=== PATIENT | female | born 1990 | race African-American/Black ===

== ENCOUNTER 2018-03-19 15:53 | Emergency (ER) | payer MEDICAID, OTHER ==
--- NOTE | 2018-03-19 17:04 | ULT ---
ULTRASOUND OBSTETRICAL COMPLETE: 03/19/18 HISTORY: 28-year-old female with abdominal/pelvic pain. FINDINGS: number: Mckeon. lie: Variable. There is a round 4 x 3.5 cm mass with intermediate echogenicity at the anterior wall of the uterus, i ndenting the gestational sac. It has echogenicity similar to that of myometrium. Maternal cervix: 3.5 cm in length and closed. Placenta: Posterior. No placenta previa. Amniotic fluid volume: Subjectively within normal limits. heart rate: 157 bpm It is too early to visualize anatomy in detail. biometry: Head circumference (HC): 6.0 cm 12w 2d Biparietal diameter (BPD): 1.9 cm 12w 6d Abdominal circumference (AC): 5.3 cm 12w 2d Femur length (FL): 0.6 cm 12w 0d Average ultrasound age (AUA): 12w 2d Estimated date of delivery (CAROL ANN): 09/29/2018 Last menstrual period (LMP): 12/21/2017 Gestational age by LMP: 12w 4d IMPRESSION: 1. Live early second trimester intrauterine gestation. 2. Estimated gestational age of 12 weeks, 2 days. 3. Variable lie. 4. Anterior myometrial mass, which could either be a Buckeye-Joshi contraction or a leiomyoma (fibroi d). Followup Recommended. DERECK Limon POS: [facility]
== END 2018-03-19 17:49 | disposition home or self-care (01) ==
LOC: ERS 15:53
DX: O34.11 Maternal care for benign tumor of corpus uteri, first trimester (principal); O99.011 Anemia complicating pregnancy, first trimester; O99.351 Diseases of the nervous system complicating pregnancy, first trimester; G43.909 Migraine, unspecified, not intractable, without status migrainosus; Z3A.12 12 weeks gestation of pregnancy
CPT/HCPCS: 76805

== ENCOUNTER 2018-05-17 09:00 | Outpatient (CLI) | payer OTHER ==
--- NOTE | 2018-05-17 11:14 | ULT ---
OB ULTRASOUND: Date: 05/17/18 COMPARISON: 03/19/18. HISTORY: female. Evaluate size, dates, and anatomy. TECHNIQUE: Multiplanar Potts scale and color Doppler images were obtained in a transabdominal ultrasound. FINDINGS: There is a single, live intrauterine with heart rate of 144 beats/minute. A survey wa s performed which is unremarkable. The nose was not well seen. The rest of the face was well visualiz ed. The head, intracranial structures, heart, stomach, kidneys, umbilical cord, umbilical cord insert ion, bladder, spine, and extremities are unremarkable. Average age of the fetus based off today's exa mination is 21 weeks and 2 days. The following measurements were taken and dates based off these measurements are as follows: BPD: 5.07 cm, 21 weeks/3 days HC: 19.23 cm, 21 weeks/4 days AC: 15.87 cm, 21 weeks/0 days FL: 3.48 cm, 21 weeks/0 days The placenta is posterior in location without focal abnormality. The fetus is transverse and variable in presentation. JONATHAN is 14.67 cm, which is normal. The cervix is normal in length without evidence o f placenta previa. IMPRESSION: Single, live intrauterine , with estimated age of 21 weeks/2 days. POS: [facility]
== END 2018-05-17 09:01 | disposition home or self-care (01) ==
LOC: BICULT 09:00
PROVIDERS: ATTEND Family Medicine
DX: O09.92 Supervision of high risk pregnancy, unspecified, second trimester (principal); Z3A.21 21 weeks gestation of pregnancy
CPT/HCPCS: 76805

== ENCOUNTER 2018-06-29 20:15 | Day surgery (SDC) | payer OTHER ==
[2018-06-29 21:01] VITALS: BP 118/68; TEMP 98.6; BMI 35.5
--- NOTE | 2018-06-30 01:13 | PRG ---
DATE OF SERVICE: 06/29/2018 PRIMARY OB: Bob Munoz MD. CHIEF COMPLAINT: Abdominal pain. HISTORY OF PRESENT ILLNESS: The patient is a 28-year-old G3, P3 female with an intrauterine at 27 weeks and 3 days, who is presenting to Labor and Delivery with complaints of 1-day history of sharp upper abdominal pains. She reports lasts for 5-7 seconds at a time and are sharp in nature. The patient denies having a hard abdominal pains making her abdomen hard. She reports that she does have some back pain and hip pain that she has been having for several weeks now and has been unable to work because of that. The patient reports that she has a bowel movement about every 2 to 3 days. At times, having constipation and pebble-like stools and other times more normal stools. The patient denies nausea. She denies vomiting. She denies diarrhea. She denies any fever, sick contacts, headache, chest pain, shortness of breath. She denies any new rashes, any urinary urgency. She denies pain with this upper abdominal pain with eating or hunger. She denies any right upper quadrant tenderness. PAST MEDICAL HISTORY: Anemia and migraines. PAST SURGICAL HISTORY: Two prior C-sections. SOCIAL HISTORY: Denies drug, alcohol, or tobacco use. ALLERGIES: NO KNOWN DRUG ALLERGIES. MEDICATIONS: None. OB LABS: Unavailable. REVIEW OF SYSTEMS: Per HPI. PHYSICAL EXAMINATION: VITAL SIGNS: Blood pressure is 119/63, heart rate of 82, respiratory rate of 18, saturating 98% on room air, temperature 98.6. GENERAL: She appears to be in no acute distress. She is alert, oriented, cooperative, and pleasant to interact with. HEAD: Normocephalic, atraumatic. LUNGS: Clear to auscultation bilaterally. HEART: Has regular rate and rhythm. ABDOMEN: Soft, gravid, nontender. She has no right upper quadrant tenderness. Negative Infante sign. She has no fundal tenderness. No lower abdominal tenderness. No CVA tenderness. EXTREMITIES: Nontender. : Exam has been deferred. heart tracing shows a baby with a baseline in the 150s with moderate long-term variability and 10 x 10 accelerations appropriate for a 27-week gestation. ASSESSMENT AND PLAN: The patient is a 28-year-old G3, P3 female with an intrauterine at 27 weeks and 3 days, presenting with musculoskeletal pains have been present for several weeks and this upper abdominal pain that does not by history sound like uterine contractions. She has no evidence on exam that these pains are associated with her gallbladder or her stomach. She may be having some pain associated with her bowels from gas as the patient does have a slower than normal colon emptying and may be experiencing colicky pains associated with this. The patient has been counseled to add fiber or other bulking agent to her diet to help her to have more regular bowel movements. The fetus is reassuring for gestational age. The patient is comfortable being discharged home and has been encouraged to keep her appointment with Dr. Munoz as scheduled. Job ID: [id number]
== END 2018-06-29 22:05 | disposition home or self-care (01) ==
LOC: ERS 20:15 → L&D/OP 20:25
PROVIDERS: ATTEND Family Medicine
DX: O99.89 Other specified diseases and conditions complicating pregnancy, childbirth and the puerperium (principal); R10.10 Upper abdominal pain, unspecified; O99.012 Anemia complicating pregnancy, second trimester; O99.352 Diseases of the nervous system complicating pregnancy, second trimester; G43.909 Migraine, unspecified, not intractable, without status migrainosus; O34.219 Maternal care for unspecified type scar from previous cesarean delivery; Z3A.27 27 weeks gestation of pregnancy
CPT/HCPCS: 99282

== ENCOUNTER 2018-08-30 23:11 | Emergency (ER) | payer OTHER ==
[2018-08-30 23:36] LABS: Bilirubin Negative (Negative); Blood, Urine Small (Negative); Clarity CLEAR (Clear); Glucose, Urine (Dipstick) 100 mg/dL (Negative); Leukocyte Negative (Negative); Nitrite Negative (Negative); Protein, Urine (Dipstick) 30 mg/dL (Neg-Trace); Specific Gravity, Urine 1.021 (1.002-1.036)
[2018-08-30 23:39] LABS: Bacteria/HPF None Seen HPF (None Seen); Crystals/HPF None Seen HPF (Negative); Hyaline Casts/LPF NONE SEEN LPF (0-3 Hyaline); RBC/HPF 0-3 HPF (0-3); Renal Epithelial None Seen HPF (0-3); Squamous Epithelial 0-3 HPF (0-3); Transitional Epithelial NONE SEEN HPF (0-3); WBC/HPF 0-3 HPF (0-3); Yeast-All Forms None Seen HPF (None Seen)
[2018-08-30 23:42] LABS: #Eosinphils 0.1 thou/uL (0.0-0.7); #Lymphocytes 1.9 thou/uL (1.20-3.40); #Monocytes 0.9 thou/uL (0.11-0.59); #Neutrophils 5.4 thou/uL (1.40-6.50); %Basophils 0.2 % (0.0-1.0); %Eosinophils 1.5 % (0.0-10.0); %Monocytes 10.5 % (0.0-10.0); %Neutrophils 64.9 % (42.0-75.0); Hemoglobin 11.3 g/dL (12.0-16.0); Mean Corpuscular HGB CONC 33.4 g/dL (32.0-36.0); Mean Corpuscular Hemoglobin 27.3 pg (27.0-31.0); Mean Corpuscular Volume 81.9 fL (78.0-98.0); Mean Platelet Volume 8.5 fL (7.4-10.4); Platelet Count 276 thou/uL (130-400); RBC Distribution Width 14.6 % (11.5-14.5); Red Blood Cell (RBC) Count 4.12 mill/uL (4.20-5.40); White Blood Cell (WBC) Count 8.3 thou/uL (4.8-10.8)
[2018-08-31 00:04] LABS: ALT (SGPT) 12 U/L (8-55); AST (SGOT) 12 U/L (5-34); Albumin 3.3 g/dL (3.5-5.0); Alkaline Phosphatase 116 U/L (40-150); Anion Gap 13 mmol/L (10-20); BUN (Urea Nitrogen) 7 mg/dL (7.0-18.7); Bilirubin, Total 0.3 mg/dL (0.2-1.2); Calc. Creatinine Clearance 0 mL/min (70-130); Calcium 9.1 mg/dL (7.8-10.44); Carbon Dioxide 16 mmol/L (22-29); Chloride 108 mmol/L (98-107); Estimated GFR-MDRD Greater than 90; Globulin 3.2 g/dL (2.4-3.5); Glucose 92 mg/dL (70-105); Lipase 26 U/L (8-78); Potassium 4.2 mmol/L (3.5-5.1); Protein, Total 6.5 g/dL (6.0-8.3); Sodium 133 mmol/L (136-145)
[2018-08-31 01:13] LABS: BHCG - Serum POSITIVE (NEGATIVE); Pregs Control Background? CLEAR/WHITE (CLR/WHITE); Pregs Control Bar Appear? YES (CONTROL BAR)
== END 2018-08-31 01:55 | disposition left against medical advice (07) ==
LOC: ERS 23:11
DX: Z53.21 Procedure and treatment not carried out due to patient leaving prior to being seen by health care provider (principal)
CPT/HCPCS: 36415; 80053; 81003; 81015; 83690; 84703; 85025

== ENCOUNTER 2018-09-27 05:27 | Inpatient (IN) | payer OTHER ==
[2018-09-27 05:58] VITALS: BMI 38.7
[2018-09-27] MEDS ORDERED: Promethazine HCl 25 MG/ML VIAL IM PRN ×3 (06:27→19:54)
[2018-09-27] MEDS ORDERED: CEFAZOLIN 2 GM in Premix Bag 1 BAG IVPB SCH (06:27)
[2018-09-27] MEDS ORDERED: Ondansetron PF 4 MG/2 ML Vial IVP PRN ×5 (06:27→19:56)
[2018-09-27] MEDS ORDERED: Lactated Ringer's 1,000 ML IV SCH (06:27)
[2018-09-27] MEDS ORDERED: hydrALAZINE 20 MG/ML VIAL SLOW IVP PRN ×3 (06:27→19:55)
[2018-09-27] MEDS ORDERED: Bicitra 30 ML UDCUP PO SCH (06:27)
[2018-09-27 06:50] LABS: Hemoglobin 11.4 g/dL (12.0-16.0); Mean Corpuscular HGB CONC 33.3 g/dL (32.0-36.0); Mean Corpuscular Hemoglobin 27.4 pg (27.0-31.0); Mean Corpuscular Volume 82.2 fL (78.0-98.0); Mean Platelet Volume 9.2 fL (7.4-10.4); Platelet Count 238 thou/uL (130-400); RBC Distribution Width 14.4 % (11.5-14.5); Red Blood Cell (RBC) Count 4.17 mill/uL (4.20-5.40); White Blood Cell (WBC) Count 7.4 thou/uL (4.8-10.8)
[2018-09-27] MEDS ORDERED: Fentanyl 100 MCG/2 ML VIAL ONE (07:11)
[2018-09-27] MEDS ORDERED: Oxytocin 10 UNITS/ML VIAL ONE ×2 (07:12→08:36)
[2018-09-27] MEDS ORDERED: Ondansetron PF 4 MG/2 ML Vial ONE ×2 (07:12→12:27)
[2018-09-27] MEDS ORDERED: Ketorolac Tromethamine 30 MG/ML VIAL ONE ×2 (07:12→12:27)
[2018-09-27] MEDS ORDERED: Phenylephrine HCL 10 MG/ML VIAL ONE (07:12)
[2018-09-27] MEDS ORDERED: ePHEDrine/0.9% NaCl/PF SYRINGE 50 mg/10 ml ONE (07:12)
[2018-09-27] MEDS ORDERED: MORPHINE 5 MG/10 ML PF VIAL ONE (07:13)
[2018-09-27 07:24] LABS: HBSAg Index 0.28 S/CO (0-0.99); Hep B Surf Ag Non-Reactive S/CO (NonReactive)
[2018-09-27 07:25] LABS: Syphilis Antibody Nonreactive (Nonreactive); Syphilis Antibody Index 0.05 S/CO (<1.00 Non-Reactive)
[2018-09-27] MEDS ORDERED: HYDROmorphone 2 MG/ML VIAL SLOW IVP PRN (08:48)
[2018-09-27] MEDS ORDERED: L&D-Morphine 4 MG/ML VIAL SLOW IVP PRN (08:48)
[2018-09-27] MEDS ORDERED: Promethazine HCl 25 MG SUPP PR PRN ×2 (08:48→19:54)
[2018-09-27] MEDS ORDERED: Naloxone HCl 0.4 mg/ml Vial IVP PRN ×2 (08:48)
[2018-09-27] MEDS ORDERED: diphenhydrAMINE 50 MG/ML VIAL IVP PRN ×2 (08:48→19:53)
[2018-09-27] MEDS ORDERED: Naloxone HCl 0.4 mg/ml Vial IV PRN ×2 (08:48→19:54)
--- NOTE | 2018-09-27 08:53 | CON ---
DATE OF CONSULTATION: 09/27/2018 TIME OF MY INVOLVEMENT/TIME OF PROCEDURE: 08:15 to 08:25. LOCATION: Labor and Delivery OR. PROCEDURE PERFORMED: Right Salpingectomy for bleeding control REQUESTING PHYSICIAN: Dr. Munoz with [facility]. COURSE OF EVENTS: In brief, I was called at approximately 08:10 to come to the OR in Labor and Delivery to assist with bleeding control. I arrived at 08:15 am as I was completing my check out from the previous on-call physician. When I arrived into the OR, I found the team still at the bedside surrounding the patient. The patient was stable and the hysterotomy had been closed status post placental delivery. I was called because in the patient's right adnexa, the right mesosalpinx had active bleeding at the large vessels due to previous adhesions that required dissection in order to complete the delivery procedure. Due to this lysis of adhesions, as this was a repeat , there was subsequent bleeding at the right mesosalpinx area. I examined the area with various clamps and found that there was no way to control the bleeding without performing a [id number]-[id number] salpingectomy. We discussed this as a team and as the only way to safely control the bleeding was the removal of the tube, we elected to do so. The ovary was left intact. We placed two Peon clamps across the injured mesosalpinx in a mid-to- distal salpingectomy fashion. The base was rendered hemostatic with free ties of 0 Vicryl x2 that were not needle-thrown. These three ties rendered the area hemostatic. After confirming that no further bleeding was noted, the uterus was replaced into the abdominal pelvic cavity as the uterus was exteriorized for this repair. After confirming hemostasis after the uterus was taken off tension, I scrubbed out at 08:25. I did go to the patient's head and discussed with her the findings and the requirement of the tubal removal. The patient was alert and responsive and was aware of the procedure being done. She had knowledge that the right tube, but not the ovary was sacrificed in order to control bleeding. The two will be sent to Pathology for final documentation and pathology review. My EBL for my portion was less than 5 mL. Total blood loss by the team, so far per Dr. Munoz, is an estimated blood loss of about 750 mL or so. The quantitative blood loss is still pending. I scrubbed out and the final disposition will be per Dr. Munoz's discretion. She was hemodynamically stable as I exited the room. Job ID: [id number] MTDD
[2018-09-27] MEDS ORDERED: Communication Order-Pharmacy FS SCH (09:00)
[2018-09-27] MEDS ORDERED: Meperidine HCl/PF 25 MG/ML VIAL ONE ×2 (10:11→10:30)
[2018-09-27] MEDS: Meperidine HCl/PF 25 MG/ML VIAL SLOW IVP PRN ×2 (10:12→10:32)
[2018-09-27] MEDS ORDERED: Morphine 4 MG/ML VIAL ONE (11:14)
[2018-09-27] MEDS ORDERED: Bisacodyl 10 MG SUPP PR PRN ×2 (11:33→19:54)
[2018-09-27] MEDS ORDERED: Simethicone Chewable 80 MG TAB PO PRN (11:33)
[2018-09-27] MEDS ORDERED: NS / Oxytocin 40 units/1000ml 1,000 ML IV SCH ×2 (11:33→20:00)
[2018-09-27] MEDS ORDERED: Lanolin Ointment 7 GM TUBE TOP PRN ×2 (11:33→19:56)
[2018-09-27] MEDS ORDERED: Adacel (T-DAP) 0.5 ML SYRINGE IM ONE (11:33)
[2018-09-27] MEDS: Ketorolac Tromethamine 30 MG/ML VIAL IVP SCH ×3 (13:24→21:31)
[2018-09-27] MEDS ORDERED: NS / Oxytocin 40 units/1000ml 1,000 ML ONE (15:26)
[2018-09-27] MEDS ORDERED: Ferrous Sulfate 325 MG TAB PO SCH (17:00)
[2018-09-27] MEDS: Simethicone Chewable 80 MG TAB PO PRN (20:03)
[2018-09-27] MEDS: Docusate Calcium (SURFAK) 240 MG CAP PO SCH (20:03)
[2018-09-27] MEDS ORDERED: Docusate Calcium (SURFAK) 240 MG CAP PO SCH (21:00)
[2018-09-27] MEDS ORDERED: HYDROcodone/Acetaminophen 5/325 mg Tablet PO PRN ×3 (21:00)
[2018-09-27] MEDS ORDERED: Meperidine HCl/PF 25 MG/ML VIAL IM PRN ×2 (21:00)
[2018-09-28] MEDS: HYDROcodone/Acetaminophen 5/325 mg Tablet PO PRN ×6 (00:37→23:17)
[2018-09-28] MEDS: Ketorolac Tromethamine 30 MG/ML VIAL IVP SCH (01:57)
[2018-09-28] MEDS: Ferrous Sulfate 325 MG TAB PO SCH ×2 (08:10→17:01)
[2018-09-28] MEDS: Prenatal Vitamin 1 TAB PO SCH (08:22)
[2018-09-28] MEDS: Ibuprofen 800 MG TAB PO SCH ×3 (08:22→23:16)
[2018-09-28] MEDS: Docusate Calcium (SURFAK) 240 MG CAP PO SCH ×2 (08:23→21:36)
[2018-09-28] MEDS: Simethicone Chewable 80 MG TAB PO PRN ×2 (08:23→14:35)
[2018-09-28] MEDS ORDERED: Prenatal Vitamin 1 TAB PO SCH (09:00)
[2018-09-28] MEDS ORDERED: Ibuprofen 800 MG TAB PO SCH (14:00)
[2018-09-29] MEDS: HYDROcodone/Acetaminophen 5/325 mg Tablet PO PRN ×3 (05:15→14:11)
[2018-09-29] MEDS: Simethicone Chewable 80 MG TAB PO PRN ×3 (05:32→14:11)
[2018-09-29 08:22] VITALS: TEMP 98.2
[2018-09-29] MEDS: Ibuprofen 800 MG TAB PO SCH ×3 (09:30→23:12)
[2018-09-29] MEDS: Prenatal Vitamin 1 TAB PO SCH (09:30)
[2018-09-29] MEDS: Docusate Calcium (SURFAK) 240 MG CAP PO SCH ×2 (09:30→23:11)
[2018-09-29] MEDS: Ferrous Sulfate 325 MG TAB PO SCH ×2 (09:30→15:56)
[2018-09-29] MEDS ORDERED: HYDROcodone/Acetaminophen 7.5/325 mg Tablet PO PRN (17:08)
[2018-09-29] MEDS: HYDROcodone/Acetaminophen 7.5/325 mg Tablet PO PRN ×2 (19:07→23:10)
[2018-09-30] MEDS: Ibuprofen 800 MG TAB PO SCH ×2 (06:51→13:43)
[2018-09-30] MEDS: HYDROcodone/Acetaminophen 7.5/325 mg Tablet PO PRN ×4 (06:56→18:20)
[2018-09-30 07:48] VITALS: BP 136/75
[2018-09-30] MEDS: Ferrous Sulfate 325 MG TAB PO SCH ×2 (08:41→18:20)
[2018-09-30] MEDS: Docusate Calcium (SURFAK) 240 MG CAP PO SCH (08:41)
[2018-09-30] MEDS: Prenatal Vitamin 1 TAB PO SCH (08:42)
[2018-09-30] MEDS: Simethicone Chewable 80 MG TAB PO PRN (08:42)
--- NOTE | 2018-10-03 09:49 | OP ---
DATE OF PROCEDURE: 09/27/2018 PREOPERATIVE DIAGNOSES: 1. Sxsxct-lejf-zyeo . 2. Prior section x2. POSTOPERATIVE DIAGNOSES: 1. Pulcvv-ibkw-ynlu . 2. Prior section x2. 3. Extensive intra-abdominal adhesions. PROCEDURES PERFORMED: 1. Repeat low cervical transverse section. 2. Partial right salpingectomy. MECHANIC INSULATOR: Dr. Smith. DESCRIPTION OF PROCEDURE: After informed consent was obtained form the patient, she was taken to the operating room, where spinal anesthesia was administered. She was prepped and draped in usual sterile fashion. A Pfannenstiel incision was created over her previous scar and carried down to the fascia. Skin bleeders were coagulated with Bovie. The fascia was nicked in the midline. The fascial incision was extended transversely with Ordonez scissors. The superior fascial segment was grasped with Kochers and elevated, and the underlying rectus muscles were taken down first bluntly, then with Ordonez scissors, and then with the cautery. This was repeated with the inferior fascial segment. In the course of taking down the superior fascial segment, the abdomen was entered, and extensive adhesions between the anterior abdominal wall and the uterine fundus were noted. These were taken down with the Bovie and Metzenbaum scissors. The bladder blade was inserted. The uterus was entered in a low transverse fashion with a clean #10 scalpel blade. The hysterotomy was extended superolaterally with blunt dissection. Clear amniotic fluid was encountered. The vertex was delivered onto the operative field. The remainder of the infant was delivered onto the operative field atraumatically. The oropharynx and nares were bulb suctioned. The cord was clamped x2 after 30 seconds, and a vigorous female was handed to the staff in attendance. Cord blood was obtained. The placenta was manually extracted. The uterus was exteriorized and freed of clots and debris. The uterine incision was repaired with a running locking suture of 0 Vicryl in a single full-thickness layer followed by series of interrupted [id number] sutures along the incision line for hemostasis. At this point, the uterus, tubes, and ovaries were inspected, and bleeding was noted from the right mesosalpinx, where adhesions had torn section of the mesosalpinx either during delivery or upon exteriorization of the uterus. Hemostats were placed for control of bleeding. At this point, Dr. Bower presented to the OR and performed a right salpingectomy. Please refer to his notes for details. A laceration of the uterine fundus from other adhesions was repaired with a running locking suture of 2-0 chromic. The abdomen was copiously irrigated with saline. Seprafilm was applied to the repaired uterine incision and the anterior uterine fundus. The uterus was returned to the abdomen. Hemostasis of the incision, the laceration in the fundus, and the right mesosalpinx was observed. The peritoneum was repaired with a running suture of 3-0 Vicryl. The fascia was repaired with a running suture of 0 PDS. Three interrupted sutures of 3-0 Vicryl were placed in the subdermal layer to reapproximate the skin, which was closed with skin gatito. Sponge and instrument counts were correct x4. She tolerated the procedure well and suffered no other acute complications. FINDINGS: Viable female infant. Apgars 8 and 9 at one and five minutes. 8 pounds 9 ounces. COMPLICATIONS: Intra-abdominal adhesions with laceration of the anterior uterine fundus and the right mesosalpinx with resultant partial right salpingectomy. NASIR: 735. Job ID: [id number]
== END 2018-09-30 18:50 | disposition home or self-care (01) | DRG 785 ==
LOC: L&D 05:27 → 3SW 11:47 → UNDODISIN 14:35
PROVIDERS: ADMIT Family Medicine; ATTEND Family Medicine
PROC: 10D00Z1 Extraction of Products of Conception, Low, Open Approach (ICD-10-PCS; principal; 2018-09-27)
PROC: 0UB50ZZ Excision of Right Fallopian Tube, Open Approach (ICD-10-PCS; 2018-09-27)
DX: O34.211 Maternal care for low transverse scar from previous cesarean delivery (principal); O67.8 Other intrapartum hemorrhage; Z3A.39 39 weeks gestation of pregnancy; Z37.0 Single live birth; O99.613 Diseases of the digestive system complicating pregnancy, third trimester; K66.0 Peritoneal adhesions (postprocedural) (postinfection); O71.81 Laceration of uterus, not elsewhere classified
CPT/HCPCS: 36415; 51702; 85027; 86780; 86850; 86900; 86901; 87340; 88302; J0690; J1200; J1885; J2175; J2270; J2274; J2370; J2405; J2590; J3010

== ENCOUNTER 2019-07-28 07:55 | Outpatient (CLI) | payer OTHER ==
--- NOTE | 2019-07-28 08:59 | ULT ---
PELVIC ULTRASOUND: DATE: 07/28/2019. HISTORY: Evaluate cystic lesion posterior to uterus. TECHNIQUE: Multiplanar, desai scale sonographic imaging of the pelvis is provided. Ovaries are assessed with col or flow and spectral analysis. FINDINGS: A single intrauterine gestation is noted. The uterus measures 13.3 x 6.8 cm. heart rate is 16 1 b.p.m. There is a simple cystic lesion measuring 4.1 x 4.4 x 3.8 cm in the region of the pelvic cul-de-sac a nterior to the cervix which appears to represent a cyst emanating from the left ovary. The left ovar y including this cystic lesion measures 5.8 x 4.4 x 4.9 cm. Right ovary measures 2.3 x 1.7 x 3.5 cm. The ovaries demonstrate normal blood flow. No free fluid noted in the pelvis. IMPRESSION: Intrauterine gestation as detailed above. Cystic lesion in the pelvic cul-de-sac likely represents a simple cyst emanating from the left ovary measuring up to 4.4 cm. POS: [facility]
== END 2019-07-28 07:56 | disposition home or self-care (01) ==
LOC: BICULT 07:55
PROVIDERS: ATTEND Family Medicine
DX: O99.89 Other specified diseases and conditions complicating pregnancy, childbirth and the puerperium (principal); R19.05 Periumbilic swelling, mass or lump; O34.80 Maternal care for other abnormalities of pelvic organs, unspecified trimester; N83.202 Unspecified ovarian cyst, left side; N94.89 Other specified conditions associated with female genital organs and menstrual cycle
CPT/HCPCS: 76856; 93976

== ENCOUNTER 2019-09-18 09:25 | Outpatient (CLI) | payer OTHER ==
--- NOTE | 2019-09-18 10:18 | ULT ---
EXAM: OB ultrasound COMPARISON: None HISTORY: female. Evaluate size, dates, and anatomy. TECHNIQUE: Multiplanar grayscale and color Doppler images were obtained in a transabdominal ult rasound. FINDINGS: There is a single live intrauterine with heart rate of 149 bpm. A survey wa s performed which is unremarkable. The spine was not well visualized. The head, intracranial structures, heart, stomach, kidneys, umbilical cord, umbilical cord insertion, face, and extremities were evaluated and were unremarkable. Estimated weight is 382 g. Average age of the fetus based off today's examination is 20 weeks 5 days. BPD 4.73 cm -- 20 weeks 3 days HC 17.85 cm -- 20 weeks 3 days AC 15.86 cm -- 21 weeks 0 days FL 3.46 cm -- 21 weeks 0 days The placenta is posterior in location without focal abnormality. JONATHAN is 14.97 cm which is normal. The cervix is normal in length. There is no evidence of placenta previa. IMPRESSION: Single live intrauterine with estimated age of 20 weeks 5 days.
== END 2019-09-18 09:26 | disposition home or self-care (01) ==
LOC: BICULT 09:25
PROVIDERS: ATTEND Family Medicine
DX: O09.92 Supervision of high risk pregnancy, unspecified, second trimester (principal); Z3A.20 20 weeks gestation of pregnancy
CPT/HCPCS: 76805

== ENCOUNTER 2020-02-01 15:25 | Outpatient (CLI) | payer OTHER ==
[2020-02-02 11:59] LABS: SARS-CoV-2 MS2 Positive; SARS-CoV-2 N Gene Negative; SARS-CoV-2 S Gene Negative; SARS-CoV-2 by NAA Not Detected (NotDetected); SARS-CoV-2 orf1ab Negative
== END 2020-02-01 15:26 | disposition home or self-care (01) ==
LOC: LABBT 15:25
PROVIDERS: ATTEND Family Medicine
DX: Z20.828 Contact with and (suspected) exposure to other viral communicable diseases (principal)
CPT/HCPCS: 87635; U0003

== ENCOUNTER 2020-02-05 05:02 | Inpatient (IN) | payer OTHER ==
[2020-02-05] MEDS ORDERED: hydrALAZINE 20 MG/ML VIAL SLOW IVP PRN ×2 (05:22→11:47)
[2020-02-05] MEDS ORDERED: Promethazine HCl 25 MG/ML VIAL IM PRN ×3 (05:22→11:47)
[2020-02-05] MEDS ORDERED: Lactated Ringer's 1,000 ML IV SCH (05:22)
[2020-02-05] MEDS ORDERED: Ondansetron PF 4 MG/2 ML Vial IVP PRN ×3 (05:22→11:47)
[2020-02-05] MEDS ORDERED: Bicitra 30 ML UDCUP PO SCH (05:30)
[2020-02-05] MEDS ORDERED: CEFAZOLIN 2 GM in Premix Bag 1 BAG IVPB SCH (05:30)
[2020-02-05 05:33] VITALS: BMI 35.0
[2020-02-05 05:59] LABS: Mean Corpuscular HGB CONC 34.3 g/dL (32.0-36.0); Mean Corpuscular Hemoglobin 27.7 pg (27.0-31.0); Mean Corpuscular Volume 80.6 fL (78.0-98.0); Mean Platelet Volume 9.3 fL (7.4-10.4); Platelet Count 249 thou/uL (130-400); RBC Distribution Width 14.3 % (11.5-14.5); Red Blood Cell (RBC) Count 3.96 mill/uL (4.20-5.40); White Blood Cell (WBC) Count 8.6 thou/uL (4.8-10.8)
[2020-02-05 06:43] LABS: HBSAg Index 0.16 S/CO (0-0.99); Hep B Surf Ag Non-Reactive S/CO (NonReactive)
[2020-02-05 07:04] LABS: Syphilis Antibody Nonreactive (Nonreactive); Syphilis Antibody Index 0.07 S/CO (<1.00 Non-Reactive)
[2020-02-05] MEDS ORDERED: Misoprostol 200 MCG TAB ONE (08:02)
[2020-02-05] MEDS ORDERED: Methylergonovine 0.2 MG/ML VIAL ONE (08:02)
[2020-02-05] MEDS ORDERED: ePHEDrine 50 MG/ML VIAL ONE (08:11)
[2020-02-05] MEDS ORDERED: Oxytocin 10 UNITS/ML VIAL ONE ×2 (08:11→09:32)
[2020-02-05] MEDS ORDERED: Ketorolac Tromethamine 30 MG/ML VIAL ONE (08:12)
[2020-02-05] MEDS ORDERED: PHENYLEPHRINE-NS 100 MCG/ML 10 ML SYRINGE ONE (08:12)
[2020-02-05] MEDS ORDERED: Ondansetron PF 4 MG/2 ML Vial ONE (09:12)
--- NOTE | 2020-02-05 09:52 | PDOC.OPDEL ---
OB Operative/Delivery Note Delivery Dr/Surgeon: Dr. Munoz, Dr. Carballo Assist: Dr. Pelletier Pre-Delivery Diagnosis: scheduled section Procedure/Post Delivery Dx: repeat low transverse CS Weeks gestation: 40 Anesthesia: spinal - Additional Findings/Plan Placenta delivered: manual removal findings: low transverse hysterotomy without extension Estimated blood loss: 445 Compilations/Other Findings: Date of Procedure: 02/05/20 Attending Surgeon: Dr. Alexander Acevedo surgeon: Dr. Carballo Assist surgeon: Dr. Pelletier WHEEL ROLLER Procedure: repeat low transverse caesarean section X4 Preoperative Diagnosis: 1) Term intrauterine 2) previous LTCS X3 3) Hx of extensive adhesions during last delivery Postoperative Diagnosis: 1) Term delivered 2) same as above Anesthesia: spinal Indications: 29 year old -> [id number] @ 40.0wks presents for repeat scheduled LTCS. X3 previous cesareans. Procedure in Detail: After risks, benefits, and alternatives were explained to the patient, she gave informed consent. Pre-operative antibiotics included ancef 2 g. The patient was taken to the operating room and spinal anesthesia was placed. She was placed in the supine position with a left tilt and prepped and draped in usual sterile fashion. A Pfannenstiel incision was made with a scalpel and carried down to the level of the fascia which was sharply nicked. The fascial cut was extended bilaterally with curved mayos. The inferior and superior edges of the cut fascial edges were elevated with Oswaldo clamps and the underlying rectus muscles bluntly and sharply dissected free. The recti were divided using blunt and sharp dissection. The peritoneum was entered bluntly and retracted manually. Few lateral adhesions were attended to with the bovie. The uterus was palpated and found to be have an anterior adhesion, which was sharply dissected free. There was a lower uterine segment window present. A low transverse score was made with the scalpel and the uterus was entered in the midline with the scalpel. Amniotomy performed with allis. Clear fluid was seen. The hysterotomy was extended manually. The infant was noted to be vertex and was easily delivered by fundal pressure. Mouth and nares were bulb suctioned. Cord clamped after 30 seconds delayed and cut and grossly normal was handed to waiting nurse. Cord blood was obtained. Placenta was manually extracted, found to be intact with 3 vessel cord and discarded. The uterus was externalized and curetted with a dry lap, while damp lap was placed over the fundus. Ring forceps were applied to the hysterotomy edges for hemostasis and the endometrium was curetted with a dry lap. The hysterotomy was closed with a running locking 0- Monocryl in the usual fashion with tags on lateral edges. An imbricating layer with vicry1-0 was sutured in the usual fashion. Following this there was noticeable bleeding from where the uterine adhesion was let down. X2 figure of 8 stitches were placed with 1-0 vicryl and then flowseal was applied with 2 minutes of firm pressure with wet lap. After this hemostasis was achieved. Seprafilm was placed over the anterior portion of the uterus. The uterus was internalized and hysterotomy was again noted to be hemostatic. The rectus was evaluated for bleeders, and found to be ozing, surgiseal was applied over the bleeding rectus muscles. The fascia was closed with a running non-locking 0-PDS suture. The subcutaneous tissue was irrigated and the bleeders were attended to with bovie. The subcutaneous spaced was closed with 3 interrupted 3-0 vicryl. The skin was approximated with gatito and a pressure bandage was placed. All counts were correct X3. The patient tolerated the procedure well and was taken to the recovery room in stable condition. QBL: 445 ml Time of delivery: 901 Complications: None Specimens: cord blood Findings: Grossly normal . Grossly normal placenta with 3 vessel cord. Drains: Odom to gravity draining clear urine Post delivery plan: recovery in LICU
[2020-02-05] MEDS ORDERED: Ondansetron HCl/PF 4 MG/2 ML Vial IVP PRN (11:01)
[2020-02-05] MEDS ORDERED: Naloxone HCl 0.4 mg/ml Vial IVP PRN ×2 (11:01)
[2020-02-05] MEDS ORDERED: Promethazine HCl 25 MG SUPP PR PRN (11:01)
[2020-02-05] MEDS ORDERED: HYDROmorphone 2 MG/ML VIAL SLOW IVP PRN (11:01)
[2020-02-05] MEDS ORDERED: Naloxone HCl 0.4 mg/ml Vial IV PRN (11:01)
[2020-02-05] MEDS ORDERED: Ketorolac Tromethamine 30 MG/ML VIAL IVP PRN (11:01)
[2020-02-05] MEDS ORDERED: L&D-Morphine 4 MG/ML VIAL SLOW IVP PRN (11:01)
[2020-02-05] MEDS ORDERED: Meperidine HCl/PF 25 MG/ML VIAL SLOW IVP PRN (11:01)
[2020-02-05] MEDS ORDERED: diphenhydrAMINE 50 MG/ML VIAL ONE (11:07)
[2020-02-05] MEDS: diphenhydrAMINE 50 MG/ML VIAL IVP PRN ×2 (11:09→16:36)
[2020-02-05] MEDS ORDERED: Ketorolac Tromethamine 30 MG/ML VIAL IVP SCH (11:15)
[2020-02-05] MEDS ORDERED: Communication Order-Pharmacy FS SCH (11:15)
[2020-02-05] MEDS ORDERED: diphenhydrAMINE 25 MG CAP PO PRN (11:47)
[2020-02-05] MEDS ORDERED: Bisacodyl 10 MG SUPP PR PRN (11:47)
[2020-02-05] MEDS ORDERED: NS / Oxytocin 40 units/1000ml 1,000 ML IV SCH (11:47)
[2020-02-05] MEDS ORDERED: Meperidine HCl/PF 25 MG/ML VIAL IM PRN (11:47)
[2020-02-05] MEDS: Ketorolac Tromethamine 30 MG/ML VIAL IVP SCH ×2 (15:12→21:58)
[2020-02-05] MEDS: Docusate Calcium (SURFAK) 240 MG CAP PO SCH (21:58)
[2020-02-06] MEDS: Ferrous Sulfate 325 MG TAB PO SCH ×3 (03:34→21:32)
[2020-02-06] MEDS: Ketorolac Tromethamine 30 MG/ML VIAL IVP SCH (04:56)
[2020-02-06 06:11] LABS: Hemoglobin 9.7 g/dL (12.0-16.0); Mean Corpuscular HGB CONC 33.4 g/dL (32.0-36.0); Mean Corpuscular Hemoglobin 27.2 pg (27.0-31.0); Mean Corpuscular Volume 81.5 fL (78.0-98.0); Mean Platelet Volume 9.3 fL (7.4-10.4); Platelet Count 229 thou/uL (130-400); RBC Distribution Width 14.6 % (11.5-14.5); Red Blood Cell (RBC) Count 3.55 mill/uL (4.20-5.40); White Blood Cell (WBC) Count 8.7 thou/uL (4.8-10.8)
[2020-02-06] MEDS: Docusate Calcium (SURFAK) 240 MG CAP PO SCH ×2 (09:22→21:32)
[2020-02-06] MEDS: HYDROcodone/Acetaminophen 5/325 mg Tablet PO PRN ×4 (09:23→21:34)
[2020-02-06] MEDS ORDERED: Adacel (T-DAP) 0.5 ML SYRINGE IM ONE (11:47)
[2020-02-06] MEDS: Ibuprofen 800 MG TAB PO SCH ×2 (13:31→21:32)
[2020-02-07] MEDS: HYDROcodone/Acetaminophen 5/325 mg Tablet PO PRN ×5 (03:36→22:01)
[2020-02-07] MEDS: Ibuprofen 800 MG TAB PO SCH ×3 (05:29→22:01)
[2020-02-07] MEDS: Simethicone Chewable 80 MG TAB PO PRN (09:17)
[2020-02-07] MEDS: Ferrous Sulfate 325 MG TAB PO SCH ×2 (09:18→22:01)
[2020-02-07] MEDS: Docusate Calcium (SURFAK) 240 MG CAP PO SCH ×2 (09:18→22:01)
[2020-02-08] MEDS: HYDROcodone/Acetaminophen 5/325 mg Tablet PO PRN ×3 (04:00→12:52)
[2020-02-08] MEDS: Ibuprofen 800 MG TAB PO SCH (05:08)
[2020-02-08] MEDS: Ferrous Sulfate 325 MG TAB PO SCH (08:25)
[2020-02-08] MEDS: Simethicone Chewable 80 MG TAB PO PRN ×2 (08:25→12:53)
[2020-02-08] MEDS: Docusate Calcium (SURFAK) 240 MG CAP PO SCH (08:25)
[2020-02-08 09:26] VITALS: BP 115/67; TEMP 97.8
== END 2020-02-08 14:30 | disposition home or self-care (01) | DRG 788 ==
LOC: L&D 05:02 → 3SW 13:19
PROVIDERS: ADMIT Family Medicine; ATTEND Family Medicine
PROC: 10D00Z1 Extraction of Products of Conception, Low, Open Approach (ICD-10-PCS; principal; 2020-02-05)
DX: O34.211 Maternal care for low transverse scar from previous cesarean delivery (principal); O99.62 Diseases of the digestive system complicating childbirth; K66.0 Peritoneal adhesions (postprocedural) (postinfection); Z20.828 Contact with and (suspected) exposure to other viral communicable diseases; Z3A.40 40 weeks gestation of pregnancy; Z37.0 Single live birth
CPT/HCPCS: 36415; 51702; 85027; 86780; 86850; 86900; 86901; 87340; J1200; J1885; J2210; J2270; J2405; J3490; Q0163